=== PATIENT | male | born 1965 | race Caucasian/White ===

== ENCOUNTER 2025-04-10 16:20 | Emergency (ER) | payer OTHER ==
[~2025-04-10] VITALS: Ht 175.2 cm; Wt 106.6 kg
[~2025-04-10 16:20] MED LIST: HYDROCODONE BIT1 T11 PO; ROBAXIN750 MG PO; SYNTHROID0.1 MG PO
[2025-04-10] MEDS ORDERED: LEVOXYL125 MCG PO (16:44)
[2025-04-10] MEDS ORDERED: EC NAPROSYN500 MG PO (18:10)
[2025-04-10] MEDS ORDERED: CYCLOBENZAPRINE10 MG PO (18:10)
[2025-04-10] MEDS ORDERED: Cyclobenzaprine Hydrochlorid 10 MG TAB PO ONE (18:15)
[2025-04-10] MEDS ORDERED: NAPROXEN 250 MG TAB PO ONE (18:15)
== END 2025-04-10 18:25 | disposition home or self-care (01) ==
LOC: ED 16:20
DX: M75.92 Shoulder lesion, unspecified, left shoulder (principal); E03.9 Hypothyroidism, unspecified; Z98.890 Other specified postprocedural states